=== PATIENT | female | born 1965 | race Caucasian/White ===

== ENCOUNTER 2018-05-31 08:41 | Day surgery (SDC) | payer OTHER ==
[2018-05-31] MEDS ORDERED: MIDAZOLAM 1 MG/ML 2 ML INJ ×2 (11:00)
[2018-05-31] MEDS ORDERED: FENTAnyl 50 MCG/ML VIAL (11:00)
== END 2018-05-31 12:07 | disposition home or self-care (01) ==
LOC: GIL 08:41
DX: Z12.11 Encounter for screening for malignant neoplasm of colon (principal); K64.8 Other hemorrhoids; K64.4 Residual hemorrhoidal skin tags; Z86.010 Personal history of colon polyps
CPT/HCPCS: 45378; 82962